=== PATIENT | female | born 1960 ===

== ENCOUNTER 2017-11-08 10:48 | Outpatient (CLI) | payer OTHER ==
[~2017-11-08 10:48] MED LIST: CYMBALTA60 MG; FLOVENT DI50 MCG/DIS; METOTREXATE IM; NAPROXEN500 MG; NEURONTIN800 MG; SINGULAIR10 MG; SYMBICORT 16010.2 GM; WAL-ITIN10 MG
== END 2017-11-08 21:55 | disposition home or self-care (01) ==
LOC: MRI 10:48
DX: M54.16 Radiculopathy, lumbar region (principal)
CPT/HCPCS: 72148

== ENCOUNTER 2018-09-15 11:44 | Emergency (ER) | payer OTHER ==
[~2018-09-15] VITALS: Ht 175.3 cm; Wt 76.2 kg
== END 2018-09-15 19:38 | disposition home or self-care (01) ==
LOC: ER 11:44
DX: M54.5 Low back pain (principal)